=== PATIENT | male | born 1985 | race Caucasian/White ===

== ENCOUNTER 2017-05-19 15:53 | Emergency (ER) | payer MEDICAID ==
[2017-05-19 16:05] VITALS: BP 129/88
--- NOTE | 2017-05-19 17:27 | ER Document Report ---
HPI - HPI Pain Level: 3 Notes: Patient is a 32-year-old male presents to the ED complaining of bilateral eye redness, green discharge, matting 3 days. Patient states that he does continue to have nasal congestion and discharge from a sinus infection he has been battling for the last week but those symptoms have been improving. He still eating and drinking without problems. Patient denies any foreign body sensation or any foreign body going into his eye. Patient denies any contact use. Denies any metal allergies. Denies any daily medications. Denies any dysuria or joint pain. Patient has been trying to wash his eyes out on occasion with water with minimal relief. Denies any fever, headaches, changes in vision, excessive tearing, ear pain, dizziness, purulent nasal discharge, sore throat, dysphagia, cough, wheeze, shortness of breath, dyspnea, chest pain , palpitations, syncope, abdominal pain, nausea/vomiting/diarrhea, hematuria, or rash. - ROS Notes: REVIEW OF SYSTEMS: CONSTITUTIONAL : Denies fever, chills, or sweats. Denies recent illness. EENT: see hpi CARDIOVASCULAR: Denies chest pain. Denies palpitations or racing or irregular heart beat. Denies ankle edema. RESPIRATORY: Denies cough, cold, or chest congestion. Denies shortness of breath, difficulty breathing, or wheezing. GASTROINTESTINAL: Denies abdominal pain or distention. Denies nausea, vomiting , or diarrhea. Denies blood in vomitus, stools, or per rectum. Denies black, tarry stools. Denies constipation. GENITOURINARY: Denies difficulty urinating, painful urination, burning, frequency, blood in urine, or discharge. MUSCULOSKELETAL: Denies back or neck pain or stiffness. Denies joint pain or swelling. SKIN: Denies rash, lesions or sores. Neuro: No MIRANDA/dizziness. ALL OTHER SYSTEMS REVIEWED AND NEGATIVE. Dictation was performed using [employer] voice recognition software - CARDIOVASCULAR Cardiovascular: DENIES: Chest pain - DERM Skin Color: Normal Past Medical History - Social History Smoking Status: Current Every Day Smoker Chew tobacco use (# tins/day): No Frequency of alcohol use: Occasional Drug Abuse: None Family History: Reviewed & Not Pertinent Patient has suicidal ideation: No Patient has homicidal ideation: No Neurological Medical History: Reports: Hx Seizures Renal/ Medical History: Denies: Hx Peritoneal Dialysis Psychiatric Medical History: Reports: Hx Attention Deficit Hyperactivity Disorder - Immunizations Hx Diphtheria, Pertussis, Tetanus Vaccination: No - unknown Vertical Provider Document - CONSTITUTIONAL Notes: PHYSICAL EXAMINATION: GENERAL: Well-appearing, well-nourished and in no acute distress. HEAD: Atraumatic, normocephalic. EYES: Pupils equal round and reactive to light, extraocular movements intact, sclera anicteric. + injected conjunctiva with green discharge present. Non- tender. No pain with ROM. ENT: EAC clear b/l. TM's intact b/l without erythema, fluid, or perforation. Nares patent and without discharge. oropharynx clear without exudates. No tonsilar hypertrophy or erythema. Moist mucous membranes. No sinus tenderness. NECK: Normal range of motion, supple without lymphadenopathy LUNGS: Breath sounds clear to auscultation bilaterally and equal. No wheezes rales or rhonchi. HEART: Regular rate and rhythm without murmurs, rubs, gallops. ABDOMEN: Soft, nontender, nondistended abdomen. No guarding, no rebound. No masses appreciated. Normal bowel sounds present. No CVA tenderness bilaterally. Musculoskeletal: FROM to passive/active. Strength 5+/5. Extremities: No cyanosis, clubbing, or edema b/l. Peripheral pulses 2+. Capillary refill less than 3 seconds. NEUROLOGICAL: Cranial nerves grossly intact. Normal speech, normal gait. Normal sensory, motor exams PSYCH: Normal mood, normal affect. SKIN: Warm, Dry, normal turgor, no rashes or lesions noted. Eyes: Irrigated Tetracaine applied Lid everted and wiped Flourescein applied, wood's lamp utilized No ulceration, foreign body, or abrasion noted - INFECTION CONTROL TRAVEL OUTSIDE OF THE [place] IN LAST 30 DAYS: No - RESPIRATORY O2 Sat by Pulse Oximetry: 97 Course - Re-evaluation Re-evalutation: 05/19/17 18:00 Patient is an afebrile, well-hydrated, 32-year-old male presents to the ED with bilateral conjunctivitis based on H&P. Vitals are stable. PE otherwise unremarkable. eye exam negative. Low suspicion for any corneal related foreign body, deep space infection (orbital cellulitis/abscess), acute glaucoma , penetrating globe injury, retinal detachment, meningitis. I will cover him with Polytrim drops to apply as directed for 7-10 days. Conservative measures otherwise for symptoms. Recheck with a PCM in 2-3 days consider consult with ophthalmology for ongoing symptoms as well. Return to the ED with any ongoing worsening and/or concerning symptoms otherwise as needed. Patient in agreement. - Vital Signs Vital signs: Temp Pulse Resp BP Pulse Ox 97.9 F 99 16 129/88 H 97 05/19/17 16:04 05/19/17 16:04 05/19/17 16:04 05/19/17 16:04 05/19/17 16:04 Discharge - Discharge Clinical Impression: Acute conjunctivitis Qualifiers: Acute conjunctivitis type: bacterial Laterality: bilateral Qualified Code(s): H10.33 - Unspecified acute conjunctivitis, bilateral Condition: Stable Disposition: HOME, SELF-CARE Additional Instructions: Keep eyes clean Wash hands regularly Do not scratch the eyes Use drops as directed Tylenol/ibuprofen and other otc meds as needed otherwise for symptoms Recheck with your PCM in 2-3 days Consider consult with Ophthalmology Return to the ED with any worsening symptoms and/or development of fever, headache, changes in vision, eye pain, chest pain, palpitations, syncope, shortness of breath, trouble breathing, abdominal pain, n/v/d, or other worsening symptoms that are concerning to you. Prescriptions: Polymyxin B Sulf/Trimethoprim [Polytrim Eye Drops] 2 drop OU Q6H #10 ml Forms: Elevated Blood Pressure Referrals: OPHTHAMOLOGY [Provider Group] - Follow up as needed
== END 2017-05-19 18:21 | disposition home or self-care (01) ==
LOC: ER 15:53
DX: H10.33 Unspecified acute conjunctivitis, bilateral (principal); B96.89 Other specified bacterial agents as the cause of diseases classified elsewhere; F17.200 Nicotine dependence, unspecified, uncomplicated
CPT/HCPCS: 99283